=== PATIENT | male | born 1965 | race American Indian/Alaskan Native ===

== ENCOUNTER 2019-10-07 06:36 | Day surgery (SDC) | payer OTHER ==
[2019-10-07] MEDS ORDERED: LIDOCAINE MPF (2%) 20 MG/1 ML VIAL 5 ML ONE (07:30)
[2019-10-07] MEDS ORDERED: SODIUM CHLORIDE 0.9% 1000 ML 1,000 ML ONE (07:31)
--- NOTE | 2019-10-07 07:44 | Anesthesia Day of Surgery ---
Anesthesia Day of Surgery - Day of Surgery Patient Examined: Yes Patient H&P Reviewed: Yes Patient is NPO: Yes
--- NOTE | 2019-10-07 07:44 | Anesthesia Consultation ---
Anesthesia Consult and Med Hx Date of service: 10/07/19 - Airway Anesthetic Teeth Evaluation: Poor (loose bottom incisors) ROM Head & Neck: Adequate Mental/Hyoid Distance: Adequate Mallampati Class: Class III Intubation Access Assessment: Possibly Difficult - Pulmonary Exam CTA: Yes - Cardiac Exam Cardiac Exam: RRR - Pre-Operative Health Status ASA Pre-Surgery Classification: ASA2 Proposed Anesthetic Plan: MAC - Pulmonary Hx Smoking: Yes (1/2 PPD x 6 months) Hx Respiratory Symptoms: No Hx Sleep Apnea: Yes (compliant with CPAP) - Cardiovascular System Hx Hypertension: No Hx Heart Attack/AMI: No - Central Nervous System CVA: No - Gastrointestinal Hx Gastroesophageal Reflux Disease: No - Endocrine Hx Renal Disease: No Hx Liver Disease: No Hx Insulin Dependent Diabetes: No Hx Non-Insulin Dependent Diabetes: No Hx Thyroid Disease: No - Other Systems Hx Obesity: No - Additional Comments Anesthesia Medical History Comments: No prior anesthetics. No FHx anesthetic complications.
[2019-10-07] MEDS ORDERED: PROPOFOL 200 MG/20 ML VIAL IV ONE ×2 (08:06)
[2019-10-07] MEDS ORDERED: SODIUM CHLORIDE 0.9% 1000 ML 1,000 ML IV SCH (08:30)
--- NOTE | 2019-10-07 08:42 | Procedure Note ---
Date of procedure: 10/07/19 Pre-op diagnosis: Colon Polyp Screening Post-op diagnosis: other (Solitary,Small Recto-Sigmoid Polyp (possibly Hyperplastic)/Minor,Internal Hemorrhoid) Procedure: Colonoscopy with Biopsy Anesthesia: MAC Surgeon: NIKKI WOODS Estimated blood loss: minimal Pathology: list Specimen disposition: to lab Condition: stable Disposition: same day (Avoid aspirin and NSAID for 4 days; otherwise resume home medication and follow up in 1 to 2 weeks ([phone]).)
--- NOTE | 2019-10-07 08:43 | Operative Report ---
INDICATIONS: A 54-year-old -[place] gentleman who had a colonoscopy done as part of colon polyp screening. DESCRIPTION OF PROCEDURE: Procedure was done after getting informed consent with MAC anesthesia. Initial rectal exam was unremarkable. Instrument was passed through the rectum onto the cecum, which was identified with ileocecal valve and appendiceal orifice. The cecum was also examined on the retroverted view. No additional pathology was noted. Visualization was fair. Cecum, ascending colon, transverse colon, descending colon, and sigmoid showed normal mucosa. There was a solitary small possibly hyperplastic polyp noted in the rectosigmoid area that was removed by cold biopsy with minimal bleeding and there was minor internal hemorrhoid also noted on the retroverted view. ASSESSMENT: Colon polyp screening, solitary small possibly hyperplastic rectosigmoid polyp, minor internal hemorrhoid. PLAN: Advised the patient to avoid aspirin and aspirin-related products for the next 4 days. Otherwise, resume home medication and follow up in the office in 1-2 weeks' time. Procedure was done in the GI lab with assistance of the GI lab team, which included [employer] with the biotech production specialist and with assistance of Anesthesia. JOB# [id number] MAXIMILIANO/HINA SPEARS
[2019-10-07 09:08] VITALS: BP 136/79
== END 2019-10-07 06:37 | disposition home or self-care (01) ==
LOC: GIO 06:36
DX: Z12.11 Encounter for screening for malignant neoplasm of colon (principal); K64.8 Other hemorrhoids; K62.1 Rectal polyp; G47.30 Sleep apnea, unspecified; F17.210 Nicotine dependence, cigarettes, uncomplicated
CPT/HCPCS: 45380; 88305; J2704; J7030